=== PATIENT | female | born 1975 | race Caucasian/White ===

== ENCOUNTER → 2017-07-13 | Outpatient (CLI) | payer OTHER ==
[~2017-07-13] MED LIST: IBUP-1050 PO
--- NOTE | 2017-07-17 12:37 | MAMMOGRAPHY REPORT ---
BILATERAL DIGITAL SCREENING MAMMOGRAM TOMOSYNTHESIS WITH CAD: 07/13/2017 CLINICAL HISTORY: Routine screening. Patient has no complaints. TECHNIQUE: Breast tomosynthesis in addition to standard 2D mammography was performed. Current study was also evaluated with a Computer Aided Detection (CAD) system. COMPARISON: Comparison is made to exams dated: 07/11/2016 mammogram, 07/08/2015 mammogram, 04/15/2014 ma mmogram, and 04/09/2013 mammogram - [facility]. BREAST COMPOSITION: The tissue of both breasts is heterogeneously dense, which may obscure small mas ses. FINDINGS: There is a subtle 10 mm asymmetry seen within the left superior breast on the MLO view onl y, thought to project laterally based on the tomosynthesis localizer bar, which may represent normal overlapping fibroglandular tissue although spot compression tomosynthesis views, left XCCL view, and possible breast ultrasound are recommended for further evaluation. The remainder of both breasts are stable compared to prior exams, without suspicious masses, calcific ations, or areas of architectural distortion noted. IMPRESSION: ACR BI-RADS CATEGORY 0: INCOMPLETE EVALUATION: NEED ADDITIONAL IMAGING EVALUATION Left breast asymmetry, for which additional imaging evaluation is recommended. The patient will be c alled to schedule an appointment. Approximately 10% of breast cancers are not detected with mammography. A negative mammographic report should not delay biopsy if a clinically suggestive mass is present. Nidia Snyder M.D. /:07/13/2017 16:45:10 Developer Evangelist: Jennie WEST)(Muriel), [facility] letter sent: Addl Imaging 0 BI-RADS Code: ACR BI-RADS Category 0: Incomplete Evaluation: Need Additional Imaging Evaluation
== END | disposition home or self-care (01) ==
LOC: C.MAMM 07:15
PROVIDERS: ATTEND Obstetrics & Gynecology
DX: Z12.31 Encounter for screening mammogram for malignant neoplasm of breast (principal); N64.89 Other specified disorders of breast

== ENCOUNTER → 2017-07-19 | Outpatient (CLI) | payer OTHER ==
--- NOTE | 2017-07-19 12:43 | MAMMOGRAPHY REPORT ---
UNILATERAL LEFT DIGITAL DIAGNOSTIC MAMMOGRAM TOMOSYNTHESIS AND TARGETED LEFT ULTRASOUND: 07/19/2017 CLINICAL HISTORY: Call back from screening mammography for a 10 mm asymmetry in the superior left brett ast, only seen on the MLO view. No family history of breast cancer. TECHNIQUE: Spot compression left MLO 2-D and tomosynthesis images, left exaggerated lateral CC 2-D an d tomosynthesis images and subsequently a full field left MLO 2-D and tomosynthesis images were obtai galen. COMPARISON: Comparison is made to exams dated: 07/13/2017 mammogram, 07/11/2016 mammogram, 07/08/2015 ma mmogram, 04/15/2014 mammogram, and 04/09/2013 mammogram - [facility]. BREAST COMPOSITION: There are scattered areas of fibroglandular density in the left breast. FINDINGS: The spot compression the left MLO view demonstrates persistence of a subtle low-density 10 mm asymmetry in the superior breast, localizing to the lateral portion of the breast based on the to mosynthesis localizer bar. No associated architectural distortion or microcalcification. This is no t identified on the exaggerated lateral CC view. When comparing to prior available mammograms, this appears more prominent compared to the 2016 mammogram and was not definitely seen on prior mammograms including the 2014, 2013 and 2012 exams. Targeted ultrasound was performed throughout the superior left breast. In the 1:00 axis, 15 cm from the nipple, there is a subtle mixed echogenicity centrally hypoechoic lesion that could represent a s mall amount of duct ectasia. This lesion measures 6.2 x 3.6 mm and may correlate with the mammograph ic finding. For confirmation, a skin BB was placed overlying the sonographic abnormality and a repea t left MLO view was obtained. This additional full field left MLO view demonstrates alignment of the BB with the asymmetry in question. This asymmetry is very subtle on the 2-D view and also the tomos ynthesis images. It could represent normal glandular tissue, PASH, less likely carcinoma. These fin dings and the subtle nature of the lesion were discussed with the patient. Options of close follow-u p versus tissue sampling were discussed. IMPRESSION: ACR BI-RADS CATEGORY 4: SUSPICIOUS, TARGETED ULTRASOUND ACR BI-RADS CATEGORY 4: SUSPICIO US The subtle 10 mm mammographic asymmetry in the superior left breast is thought to correlate with a bell btle mixed echogenicity lesion in the 1:00 axis of the left breast on ultrasound. Options of tissue sampling versus close follow-up were discussed with the patient and we will tentatively plan to sampl e with an ultrasound-guided core needle biopsy at this time. The patient tentatively scheduled the appointment prior to leaving our department. Approximately 10% of breast cancers are not detected with mammography. A negative mammographic report should not delay biopsy if a clinically suggestive mass is present. Kinsey Renae M.D. ay/:07/19/2017 11:19:49 Enterprise Systems Architect: Jennie WEST)(Muriel), [facility] letter sent: Abnormal 4/5 BI-RADS Code: ACR BI-RADS Category 4: Suspicious Ultrasound BI-RADS: ACR BI-RADS Category 4: Suspici ous
== END | disposition home or self-care (01) ==
LOC: C.MAMM 09:58
PROVIDERS: ATTEND Obstetrics & Gynecology
DX: R92.8 Other abnormal and inconclusive findings on diagnostic imaging of breast (principal)

== ENCOUNTER → 2017-07-25 | Outpatient (CLI) | payer OTHER ==
--- NOTE | 2017-07-25 08:46 | Discharge Instructions ---
Discharge Instructions Procedure Procedure Date: Jul 25, 2017. Reason for visit: Left Mass. Discharge Discharge Date: Jul 25, 2017. Discharge Diagnosis: post left breast ultrasound guided core biopsy Instructions Activity Recommendations: Additional Limitations (see below) Return to School/Work: no limitations Recommended Home Diet: No Limitations Provider Instructions: ACTIVITY RECOMMENDATIONS: * No lifting, pushing, pulling or exercising the affected side for three days. RETURN TO SCHOOL/WORK: * You may return to work/school after the procedure, but do not perform any strenuous activities for 24 to 48 hours. MEDICATIONS: * Tylenol (two 325 mg) every four to six hours if needed for mild pain (if not allergic to Tylenol). DIET: * Resume previous diet. SPECIAL CARE INSTRUCTIONS: * Keep biopsy site dry for 24 hours. May shower after 24 hours, but do not soak (bathe) incision. * May remove Tegaderm (plastic patch) tomorrow AFTER showering. * Leave the steri-strips on for one week. Allow the steri-strips to fall off by themselves. If not off after one week, you may remove them. You may place a Bandaid crosswise over the strips, if desired. * Apply ice 10 minutes on and 10 minutes off as needed. * Wear a bra at bedtime to sleep more comfortably for 2-3 days. * Your referring physician should have the results after approximately 5 to 7 business days. * Call for unusual bleeding, fever, drainage, etc or if you have any questions call [phone] during normal business hours or after hours call Dr Renae, . FOLLOW UP VISIT: Follow-up with Referring Physician as scheduled. Allergies Coded Allergies: Minocycline (Verified Allergy, Unknown, UNKNOWN, 06/21/15) Kevin Flores Recommendations: Call your doctor if: * Temperature above 101 degrees * Pain not relieved by pain medicine ordered * There is increased drainage or redness from any incision * You have any unanswered questions or concerns. Your Doctors Instructions noted above were prepared by provider Kinsey Renae. Patient Signature Section: Patient Instructions Signature Page Compa Salazar Patient (or Guardian) Signature/Date: I have read and understand the instructions given to me by my caregivers. Caregiver/RN/Doctor Signature/Date: The above-named patient and/or guardian has received patient instructions on this date. + Original Patient Signature Page (only) stays with chart. Please make copy for patient.
--- NOTE | 2017-07-25 14:18 | MAMMOGRAPHY REPORT ---
THIS REPORT HAS BEEN AMENDED. ULTRASOUND GUIDED BIOPSY LEFT BREAST: 07/25/2017 CLINICAL HISTORY: Indeterminate subtle mixed echogenicity mass in the 1:00 left breast, 15 cm from th e nipple. Patient presents for ultrasound-guided core needle biopsy. COMPARISON: Comparison is made to exams dated: 07/19/2017 ultrasound, 07/19/2017 mammogram, 07/13/2017 joseph mogram, 07/11/2016 mammogram, 07/08/2015 mammogram, and 04/15/2014 mammogram - [facility]. PATIENT CONSENT: The procedure, risks and benefits were discussed with the patient and informed conse nt was obtained both verbally and in writing. Specific risks to this procedure include: bleeding, in fection, puncture of adjacent structure, nontarget biopsy, sampling error, pain, metal allergy and me dication reaction. PROCEDURE DESCRIPTION: A time out was performed and the left breast was agreed as the site of biopsy. The skin was prepped and draped in the usual sterile fashion. The subtle mixed echogenicity solid ap pearing mass in the 1:00 left breast was chosen as the target for biopsy. Subcutaneous and intraparen chymal 1% buffered lidocaine, with and without epinephrine, was administered as local anesthesia. A s kin incision was made. Through the incision, 3 samples were taken with a 14 gauge Achieve biopsy dev ice. A ribbon shaped metallic marker was placed at the biopsy site. Hemostasis was achieved after man ual compression. The patient tolerated the procedure well and there was no immediate complication. T he samples were sent to the pathology department in an appropriately labeled container. This procedure left MLO and left lateral views were obtained. A new ribbon-shaped metallic biopsy ma juhi is seen in the far superior left breast on both views. The location of the biopsy marker clip i s thought to be in good position with regard to the asymmetry in question. A small amount of asymmet ry is present surrounding the biopsy marker, likely a combination of lidocaine and hematoma. Therefo re pending benign pathology results, follow-up left diagnostic mammograms and possible ultrasound are recommended to ensure stability in 6 months. IMPRESSION: ULTRASOUND GUIDED BIOPSY Status post ultrasound guided core biopsy of a subtle mixed echogenicity mass in the 1:00 left breast , thought to correlate with the mammographic asymmetry, with ribbon shaped metallic biopsy marker yojana kerri at the site. Pending benign pathology results, recommend follow-up tomosynthesis mammograms and possible ultrasoun d to ensure stability in 6 months. The patient will receive notification of the biopsy results from her referring physician. Kinsey Renae M.D. ay/:07/25/2017 09:37:03 Attending Technologist: Xavier LEZAMA (R)(Muriel), [facility] Straight Tooth Gear Generator Operator: Dr. Kinsey Renae, [facility] AMENDMENT: 08/01/2017 Kinsey Renae M.D. Pathology results from the ultrasound-guided core biopsy of a subtle asymmetry in the 1:00 left breas t yielded benign breast tissue. Negative for in situ and invasive carcinoma. The pathology results are concordant with the imaging appearance. Given that there was a small amount of hematoma and lido hasmukh after the biopsy to assess for definitive mammographicsonographic correlation, a short interva l follow-up left tomosynthesis mammogram and possible repeat ultrasound is recommended in 6 months.
--- NOTE | 2017-07-25 14:18 | MAMMOGRAPHY REPORT ---
UNILATERAL LEFT DIGITAL DIAGNOSTIC MAMMOGRAM TOMOSYNTHESIS: 07/25/2017 CLINICAL HISTORY: Status post ultrasound guided core biopsy in the 1:00 left breast. Please refer to the report from left breast ultrasound-guided core biopsy performed at the same time for full detail. IMPRESSION: POST PROCEDURE IMAGING FOR MARKER PLACEMENT Please refer to the report from left breast ultrasound-guided core biopsy performed at the same time for full detail. Approximately 10% of breast cancers are not detected with mammography. A negative mammographic report should not delay biopsy if a clinically suggestive mass is present. Kinsey Renae M.D. ay/:07/25/2017 08:48:21 Dredge Boat Engineer: Xavier LEZAMA(R)(M), [facility] BI-RADS Code: Post Procedure Imaging For Marker Placement
== END | disposition home or self-care (01) ==
LOC: C.MAMM 08:07
PROVIDERS: ATTEND Obstetrics & Gynecology
DX: N63 Unspecified lump in breast (principal)

== ENCOUNTER → 2017-10-12 | Outpatient (CLI) | payer OTHER | END | disposition home or self-care (01) | LOC: C.PAPS 11:18 | PROVIDERS: ATTEND Obstetrics & Gynecology | DX: Z01.419 Encounter for gynecological examination (general) (routine) without abnormal findings (principal) ==

== ENCOUNTER → 2018-02-01 | Outpatient (CLI) | payer BC ==
--- NOTE | 2018-02-04 12:42 | MAMMOGRAPHY REPORT ---
UNILATERAL LEFT DIGITAL DIAGNOSTIC MAMMOGRAM TOMOSYNTHESIS WITH CAD: 02/01/2018 CLINICAL HISTORY: History of ultrasound-guided biopsy of a left 1:00 breast asymmetry July 2017, with pathology yielding benign breast tissue. The patient reports no new complaints. TECHNIQUE: Breast tomosynthesis in addition to standard 2D mammography was performed. Current study was also evaluated with a Computer Aided Detection (CAD) system. Left CC and MLO 2D and tomosynthesi s images were obtained. COMPARISON: Comparison is made to exams dated: 02/01/2018 ultrasound, 07/25/2017 ultrasound biopsy, mammogram, 07/19/2017 ultrasound, 07/19/2017 mammogram, and 07/13/2017 mammogram - [facility]. BREAST COMPOSITION: The tissue of the left breast is heterogeneously dense, which may obscure small masses. FINDINGS: A ribbon-shaped biopsy marker clip is seen at the site of the biopsied asymmetry in the lef t upper outer quadrant posteriorly. The biopsy asymmetry is not significantly changed compared to th e prior July 2017 exam. Given the stability and given the benign pathology on biopsy, the asymm etry is considered benign. The remainder of the left breast is stable compared to prior exams, without suspicious masses, calcif ications, or areas of architectural distortion noted. IMPRESSION: ACR BI-RADS CATEGORY 2: BENIGN There is no mammographic evidence of malignancy in the left breast. Return to annual mammogram screen ing schedule is recommended, due July 2018. The patient has been verbally notified of the resul ts. Approximately 10% of breast cancers are not detected with mammography. A negative mammographic report should not delay biopsy if a clinically suggestive mass is present. Nidia Snyder M.D. ah/:02/01/2018 08:44:05 Decision Unit Rn: Xavier LEZAMA(R)(M), [facility] letter sent: Normal 1/2 BI-RADS Code: ACR BI-RADS Category 2: Benign
== END | disposition home or self-care (01) ==
LOC: C.MAMM 08:18
PROVIDERS: ATTEND Obstetrics & Gynecology
DX: N64.89 Other specified disorders of breast (principal)